=== PATIENT | male | born 1985 | race African-American/Black ===

== ENCOUNTER 2016-07-14 13:04 | Emergency (ER) | payer OTHER ==
[~2016-07-14] VITALS: Ht 182.9 cm; Wt 77.1 kg
--- NOTE | 2016-07-14 14:50 | ED GI/GU/ABDOMINAL COMPLAINT ---
History of Present Illness General Chief Complaint: Male Genitourinary Problems Stated Complaint: R SHOULDER PAIN Source: patient Exam Limitations: no limitations Vital Signs & Intake/Output Vital Signs & Intake/Output Vital Signs Date Time Temp Pulse Resp B/P Pulse O2 O2 Flow FiO2 Ox Delivery Rate 07/14 1606 97.2 67 18 123/80 98 Room Air 07/14 1604 Room Air 07/14 1343 98.6 84 18 131/87 99 Room Air Allergies Coded Allergies: No Known Allergies (07/14/16) Triage Note: PT TO ED FOR STD CHECK, STATING HE HAD UNPROTECTED SEX LAST FRIDAY AND IS NOW HAVING PENIS PAIN AND CLEAR DRAINAGE FROM HIS PENIS. Triage Nurses Notes Reviewed? yes Duration: constant Timing: recent history Severity Numbers: 3 Location: urethral Radiation: no radiation Activities at Onset: sexual activity Prior Abdominal Problems: similar symptoms HPI: Patient is a 31-year-old male with past medical history of sexual transmitted disease who states that 8 days ago patient had unprotective sexual intercourse with a female partner were since she is developed a gradual onset of penile discomfort and mild dysuria and clear penile urethral discharge. Patient denies any fever chills testicular pain or swelling or nausea vomiting or abdominal pain. Unsure of sexual partner symptoms. Denies any skin lesions or rash (NANY DON) Past History Travel History Traveled to [place] past 21 day No Medical History Any Pertinent Medical History? none Neurological: NONE EENT: NONE Cardiovascular: NONE Respiratory: NONE Gastrointestinal: NONE Hepatic: NONE Renal: NONE Musculoskeletal: NONE Psychiatric: NONE Endocrine: NONE Blood Disorders: NONE Cancer(s): NONE Surgical History Surgical History: non-contributory Psychosocial History What is your primary language Malian Tobacco Use: Never used ETOH Use: denies use Illicit Drug Use: denies illicit drug use Family History Hx Contributory? No (NANY DON) Review of Systems Review of Systems Constitutional: Reports: no symptoms. EENTM: Reports: no symptoms. Respiratory: Reports: no symptoms. Cardiovascular: Reports: no symptoms. GI: Reports: no symptoms. Genitourinary: Reports: see HPI, dysuria, pain. Musculoskeletal: Reports: no symptoms. Skin: Reports: no symptoms. Neurological/Psychological: Reports: no symptoms. Hematologic/Endocrine: Reports: no symptoms. Immunologic/Allergic: Reports: no symptoms. All Other Systems: Reviewed and Negative (NANY DON) Physical Exam Physical Exam General Appearance: no apparent distress, alert, comfortable Gastrointestinal: normal bowel sounds, soft, non-tender, no organomegaly Male Genitals: normal genitalia, nORMAL GENITAL EXAM NO LESIONS NO ERYTHEMA NO TESTICULAR SWELLING OR PAIN CREMASTER REFLEX INTACT Comments: Well-developed well-nourished person in no acute distress HEENT: Normal EENT exam, Neck: Supple, no lymphadenopathy, normal range of motion without pain or tenderness Back: Nontender, no CVA tenderness. Cardiovascular: Regular rate and rhythms no murmurs rubs or gallops, normal JVP Abdomen: Soft, nontender nondistended, no appreciable organomegaly. Normal bowel sounds. No ascites Extremity: No edema, no calf tenderness to palpation, normal and equal pulses. Neuro: Alert oriented x3, motor sensory normal, Skin: No appreciable rash on exposed skin, skin is warm and dry. Psych: Mood and affect is normal, memory and judgment is normal. Core Measures ACS in differential dx? No Severe Sepsis Present: No Septic Shock Present: No (TRI ESCOBAR,NANY) Progress Differential Diagnosis: appendicitis, biliary colic, bowel obstruction, cholecystitis, diverticulitis, epididymitis, esophageal varices, gastritis, hepatitis, hernia, hemorrhoids, ischemic bowel, inflamm bowel dis, Loren-Yassine tear, orchitis, pancreatitis, prostatitis, peptic ulcer, PUD/GERD, perforated viscous, pyelonephritis, SBO, STD, testicular torsion, ureterolithiasis, urinary retention, urethritis, UTI/pyelo Plan of Care: Orders Procedure Date/time Status CULTURE,URINE 07/14 1449 Active CHLAMYDIA-GC DNA PROBE 07/14 1449 Active URINALYSIS 07/14 1449 Complete Laboratory Tests 07/14/16 1515: Urinalysis LIGHT H, Urine Color YEL, Urine Clarity HAZY H, Urine pH 6.0, Ur Specific [place] >= 1.030, Urine Protein TRACE H, Urine Ketones NEG, Urine Nitrite NEG, Urine Bilirubin NEG, Urine Urobilinogen 0.2, Ur Leukocyte Esterase NEG, Ur Microscopic SEDIMENT EXAMINED, Urine RBC RARE, Ur Epithelial Cells FEW, Urine Hemoglobin TRACE-INTACT H, Urine Glucose NEG Microbiology 07/14 151 URINE ROUT: GC DNA Probe - RECD 07/14 151 URINE ROUT: Chlamydia DNA Probe (ANILA) - RECD 07/14 151 URINE ROUT: Urine Culture - RECD Patient will be treated for concerns of prophylactic STD infection. Patient has no concern of testicular torsion. Patient was instructed on safe sex practice STRESSED THE importance of follow-up with ER for culture results and to advise partner to be treated as well. (NANY DON) Initial ED EKG: none (NANY DON) Departure Departure Disposition: HOME OR SELF CARE Condition: Stable Clinical Impression Primary Impression: Dysuria Secondary Impressions: STD (male) Referrals: PATIENT HAS NO PRIMARY CARE DR (PCP/Family) Additional Instructions: As discussed you have any given azithromycin and Rocephin in the emergency room for your symptoms. Please call the emergency room in 2 days for the results of the culture. PLEASE DO NOT PARTICIPATE IN sexual activities for 2 weeks if positive. If positive please also let your partner KNOW for them to be treated. If symptoms worsen return to emergency room. Always use and practice safe sex techniques. Departure Forms: Customer Survey General Discharge Information (NANY DON) PA/CAE ENGINEER Co-Sign Statement Statement: ED Attending supervision documentation- [] I saw and evaluated the patient. I have also reviewed all the pertinent lab results and diagnostic results. I agree with the findings and the plan of care as documented in the PA's/CAE ENGINEER's documentation. [X] I have reviewed the ED Record and agree with the PA's/CAE ENGINEER's documentation. [] Additions or exceptions (if any) to the PAs/CAE ENGINEER's note and plan are summarized below: [] (URIEL GARSIA,JAQUELINE Romero)
[2016-07-14 16:06] VITALS: BP 123/80
== END 2016-07-14 16:07 ==
LOC: ERH 13:04
DX: R30.0 Dysuria (principal); A64 Unspecified sexually transmitted disease
CPT/HCPCS: 81001; 87086; 87491; 87591; 96372; J0696